=== PATIENT | female | born 2000 | race Caucasian/White ===

== ENCOUNTER 2018-01-09 18:48 | Emergency (ER) | payer SELFPAY ==
[2018-01-11] MEDS ORDERED: METAL LOCK LOOP XX (09:05)
== END 2018-01-09 21:51 | disposition left against medical advice (07) ==
LOC: M ED 18:48
DX: M25.559 Pain in unspecified hip (principal); Z53.21 Procedure and treatment not carried out due to patient leaving prior to being seen by health care provider

== ENCOUNTER 2018-03-14 12:28 | Emergency (ER) | payer OTHER, SELFPAY | END 2018-03-14 14:19 | disposition home or self-care (01) | LOC: M ED 12:28 | DX: M70.51 Other bursitis of knee, right knee (principal); M70.52 Other bursitis of knee, left knee; F17.210 Nicotine dependence, cigarettes, uncomplicated | CPT/HCPCS: 99282 ==

== ENCOUNTER 2018-04-18 12:54 | Emergency (ER) | payer OTHER | END 2018-04-18 14:16 | disposition home or self-care (01) | LOC: M ED 12:54 | DX: M25.551 Pain in right hip (principal); F17.210 Nicotine dependence, cigarettes, uncomplicated; Z97.5 Presence of (intrauterine) contraceptive device | CPT/HCPCS: 73502 ==

== ENCOUNTER 2018-06-13 07:32 | Emergency (ER) | payer OTHER ==
[2018-06-13] MEDS: TETRACAINE 0.5% OPHTH SOLN 4ML OD (08:00)
[2018-06-13] MEDS: FLUORESCEIN OPHTH 1 MG STRIP OD (08:00)
== END 2018-06-13 08:30 | disposition home or self-care (01) ==
LOC: M ED 07:32
DX: H10.31 Unspecified acute conjunctivitis, right eye (principal); F17.200 Nicotine dependence, unspecified, uncomplicated; Z97.3 Presence of spectacles and contact lenses; Z97.5 Presence of (intrauterine) contraceptive device
CPT/HCPCS: 99283